=== PATIENT | female | born 2005 | race Caucasian/White ===

== ENCOUNTER 2023-07-11 23:06 | Observation (INO) | payer OTHER ==
[~2023-07-11] VITALS: Ht 170.2 cm; Wt 59.0 kg
[~2023-07-11 23:06] MED LIST: CEPH500 PO; POLY17UD PO; RXCODACET PO
[2023-07-11 23:35] LABS: BASOPHILS ABSOLUTE AUTO 0.03 K/mm3 (0.00-0.23); BASOPHILS PERCENT AUTO 0 % (0-2); EOSINOPHILS ABSOLUTE AUTO 0.08 K/mm3 (0.00-0.68); EOSINOPHILS PERCENT AUTO 1 % (0-6); Hematocrit 36.9 % (33.0-51.0); Hemoglobin 12.6 g/dL (11.5-16.0); IMMATURE GRAN ABSOLUTE AUTO 0.03 K/mm3 (0.00-0.10); IMMATURE GRAN PERCENT AUTO 0 % (0-1); LYMPHOCYTES ABSOLUTE AUTO 1.58 K/mm3 (0.84-5.20); LYMPHOCYTES PERCENT AUTO 17 % (21-46); MONOCYTES ABSOLUTE AUTO 0.78 K/mm3 (0.16-1.47); MONOCYTES PERCENT AUTO 8 % (4-13); Mean Corpuscular HGB 30.3 pg (26.0-34.0); Mean Corpuscular HGB Conc 34.1 g/dL (31.5-36.5); Mean Corpuscular Volume 89 fL (80-100); Mean Platelet Volume 9.7 fL (9.1-12.4); NEUTROPHILS ABSOLUTE AUTO 7.04 K/mm3 (1.96-9.15); NEUTROPHILS PERCENT AUTO 74 % (41-73); Platelet Count 255 K/mm3 (150-400); RDW Coefficient Variation 12.4 % (11.7-14.2); RDW Standard Deviation 40.5 fL (35.1-46.3); Red Blood Cell Count 4.16 M/mm3 (3.80-5.20); White Blood Cell Count 9.54 K/mm3 (4.00-11.30)
[2023-07-11 23:54] LABS: Albumin, Blood 4.2 g/dL (3.4-5.0); Albumin/Globulin Ratio 1.1 (0.8-1.8); Bilirubin, Total 0.7 mg/dL (0.1-1.0); Bun/Creatinine Ratio 13.8 (12.0-20.0); Calcium, Blood 9.2 mg/dL (8.5-10.1); Creatinine, Blood 0.65 mg/dL (0.40-1.00); Globulin, Blood 3.8 g/dL (2.2-4.0); Potassium, Blood 3.7 mmol/L (3.5-5.5)
[2023-07-11 23:59] LABS: Source, Urine Clean Catch
[2023-07-12] VITALS (22 sets, daily range): BP systolic 94–131; BP diastolic 52–95
[2023-07-12 00:04] LABS: Bilirubin, Urine Neg (Neg); Blood, Urine 2+ (Neg); Glucose Qualitative, Urine Neg (Neg); Ketones, Urine 4+ (Neg); Leukocyte Esterase, Urine Neg (Neg); Nitrite, Urine Neg (Neg); Protein, Urine Neg (Neg); Urobilinogen, Urine NORM (Normal); pH, Urine 6.5 (5.0-8.0)
[2023-07-12 00:16] LABS: Appearance, Urine Clear (Clear); Color, Urine Yellow (P-Yellow)
[2023-07-12 00:18] LABS: Bacteria Mod /hpf; Red Blood Cells, Urine 0-2 /hpf (0-2); Squamous Epithelial Cells Few /hpf (Few); White Blood Cells, Urine 0-2 /hpf (0-5)
[2023-07-12] MEDS ORDERED: Ketorolac Tromethamine 30mg Vial IV ONE (00:40)
[2023-07-12] MEDS ORDERED: Ondansetron HCl 2 MG / ML 2ML Vial IV ONE (00:40)
[2023-07-12] MEDS ORDERED: NS 1,000 ML IV SCH (00:40)
[2023-07-12] MEDS ORDERED: MetroNIDAZOLE 500MG/NS 100 ml 100 ML IV ONE ×2 (02:10→09:15)
[2023-07-12] MEDS ORDERED: CefTRIAXone Sodium 1,000 MG in NS 50 ML IV ONE (02:10)
[2023-07-12] MEDS ORDERED: Lactated Ringer's 1,000 ML IV SCH ×3 (02:20→14:35)
[2023-07-12] MEDS ORDERED: Ondansetron HCl 2 MG / ML 2ML Vial IV PRN ×3 (02:20→14:35)
[2023-07-12] MEDS ORDERED: Ketorolac Tromethamine 15mg Vial IV PRN (04:25)
--- NOTE | 2023-07-12 05:25 | NUR ---
END OF SHIFT NOTE: PT A/OX4 ON RA. SHE HAS BEEN NPO SINCE ARRIVAL TO PCU. SHE HAS BEEN MEDICATED PER THE MAR FOR ABD PAIN. PT DENIES ANY OTHER CONCERNS. SHE CALLS APPROPRIATELY, CALL LIGHT IN REACH AND BED IN LOWEST POSITION.
[2023-07-12] MEDS ORDERED: FentaNYL Citrate 50 MCG/ML 2 ML Injection ONE ×2 (08:35→10:36)
[2023-07-12] MEDS ORDERED: FentaNYL Citrate 50 MCG/ML 2 ML Injection IV PRN ×3 (08:35→08:40)
[2023-07-12] MEDS ORDERED: propofoL 20 ML IV ONE (08:35)
[2023-07-12] MEDS ORDERED: Sugammadex Sodium 200 MG/2ML SDV (100 MG/ML) ONE (08:36)
[2023-07-12] MEDS ORDERED: Lidocaine HCl 1% 5 ML SYR INJ ONE (08:40)
[2023-07-12] MEDS ORDERED: HYDROmorphone HCl/Pf 1MG SYR IV PRN (08:40)
[2023-07-12] MEDS ORDERED: Midazolam HCl 1MG / ML 2ML Vial IV PRN (08:40)
[2023-07-12] MEDS ORDERED: Metoclopramide HCl 5MG / ML 2ML Vial IV PRN (08:40)
[2023-07-12] MEDS ORDERED: Bupivacaine 0.5% HCl 5 MG/ML 30MLVIAL ONE (09:00)
--- NOTE | 2023-07-12 09:00 | NUR ---
am note this rn assumed care at 0700. vital signs stable. patient is alert and oriented x4. perrla. patient is able to make needs known and uses call light appropriately. patient denies chest pain/pressure or shortness of breath or pain. see shift assessment for further detials. md haile in room this am and discussed surgery with the patient. patient is in surgery currently for appendix removal. plan of care up to date
--- NOTE | 2023-07-12 09:17 | NUR ---
PT HERE FROM PCU 4 FOR LAP. APPY. PT IS VERY ANXIOUS BUT ASKING GOOD QUESTIONS. FAMILY/SO UNABLE TO BE HERE D/T HOW FAR AWAY THEY LIVE. Patient confirms NPO status and agrees with scheduled surgery. Pre-Op teaching done. Pt verbalizes understanding. History, Chart, Medications and Allergies reviewed before start of procedure.
[2023-07-12] MEDS ORDERED: Midazolam HCl 1MG / ML 2ML Vial ONE (09:20)
[2023-07-12] MEDS ORDERED: Rocuronium Bromide 10 MG/ML 5ML Injection IV ONE (09:22)
[2023-07-12] MEDS ORDERED: Dexamethasone Sod Phos 10 MG/ML 1ML VIAL ONE (09:31)
[2023-07-12] MEDS ORDERED: Ondansetron HCl 2 MG / ML 2ML Vial ONE (09:31)
[2023-07-12] MEDS ORDERED: Ketorolac Tromethamine 30mg Vial ONE (09:52)
[2023-07-12] MEDS ORDERED: HYDROcodone 5-APAP 325 TAB PO PRN (12:10)
--- NOTE | 2023-07-12 12:34 | NUR ---
MD HAILE IN ROOM md haile in room to discuss plan of care with patient and patient family. family requesting that patient stays over night since they live [place]. Plan is for patient to stay over night and be discharged tomorrow.
[2023-07-12] MEDS ORDERED: FLU VACC QS2023-24(6MOS UP)/PF 60 MCG/0.5 ML SYRINGE IM ONE (14:35)
[2023-07-12] MEDS ORDERED: Acetaminophen 325 MG TABLET PO PRN (14:35)
--- NOTE | 2023-07-12 17:19 | NUR ---
shift summary patient neuro remains unchaged, neuro intact. vital signs stable. surgical status. patient reports pain that has been controlled with medication. education provided on pain management, pharmacological and nonpharmacological methods of pain management. no acute changes. see previous notes. plan of care remains up to date. call light within reach
--- NOTE | 2023-07-12 22:15 | NUR ---
TRANSFER OF CARE NOTE CALLED REPORT TO SURGICAL FLOOR GEORGE Zapata. ALL QUESTIONS ANSWERED. ALL PT'S PERSONAL BELONGING GATHERED AND TRANSPORTED WITH PT. CANDELARIA NOLAN UPON TRANSFER TO ROOM 228.
[2023-07-13 04:37] VITALS: BP 107/65
--- NOTE | 2023-07-13 05:30 | NUR ---
SHIFT SUMMARY PCU TRANSFER AT START OF SHIFT. S/P LAP APPY. PT ALERT, ORIENTED AND INDEPENDENT. 1 NORCO FOR PAIN MANAGEMENT. PT REPORTS FLATUS AND AVRIL REG DIET. VOIDING. X3 LAP SITES TO ABD REMAIN CDI. PT LOOKING FORWARD TO DISCHARGING HOME TODAY. CALL LIGHT WITHIN REACH.
[2023-07-13 07:08] VITALS: BP 127/73
[2023-07-13 09:58] LABS: BASOPHILS ABSOLUTE AUTO 0.01 K/mm3 (0.00-0.23); BASOPHILS PERCENT AUTO 0 % (0-2); EOSINOPHILS ABSOLUTE AUTO 0.06 K/mm3 (0.00-0.68); EOSINOPHILS PERCENT AUTO 1 % (0-6); Hematocrit 30.9 % (33.0-51.0); Hemoglobin 10.5 g/dL (11.5-16.0); IMMATURE GRAN ABSOLUTE AUTO 0.02 K/mm3 (0.00-0.10); IMMATURE GRAN PERCENT AUTO 0 % (0-1); LYMPHOCYTES PERCENT AUTO 21 % (21-46); MONOCYTES PERCENT AUTO 8 % (4-13); Mean Corpuscular HGB 30.7 pg (26.0-34.0); Mean Corpuscular Volume 90 fL (80-100); Mean Platelet Volume 10.4 fL (9.1-12.4); NEUTROPHILS ABSOLUTE AUTO 5.57 K/mm3 (1.96-9.15); NEUTROPHILS PERCENT AUTO 70 % (41-73); Platelet Count 215 K/mm3 (150-400); RDW Coefficient Variation 12.5 % (11.7-14.2); RDW Standard Deviation 41.3 fL (35.1-46.3); Red Blood Cell Count 3.42 M/mm3 (3.80-5.20); White Blood Cell Count 7.96 K/mm3 (4.00-11.30)
[2023-07-13 10:17] LABS: Bun/Creatinine Ratio 13.2 (12.0-20.0); Calcium, Blood 8.1 mg/dL (8.5-10.1); Creatinine, Blood 0.68 mg/dL (0.40-1.00); Potassium, Blood 3.3 mmol/L (3.5-5.5)
--- NOTE | 2023-07-13 17:52 | NUR ---
DISCHARGE SUMMARY POD1 LAP APPY, A/OX4, VSS, TOLERATING PO, PAIN WELL MANAGED, INDEPENDENT IN THE ROOM, VOIDING WELL. DISCUSSED DISCHARGE INFORMATION INCLUDING HOME CARE, MEDICATIONS, AND FOLLOW UP APPOINTMENTS. NO QUESTIONS AT THIS TIME, SHE VERBALIZED UNDERSTANDING OF INSTRUCTIONS. ESCORTED OUT VIA WC TO PRIVATE AUTO TO GO HOME.
== END 2023-07-13 15:17 | disposition home or self-care (01) ==
LOC: ER 23:06 → SURS 23:07 → PCU 23:07 → SURS 07-12 21:39
PROVIDERS: Physician Assistant; Surgery; ADMIT Surgery
PROC: 0DTJ0ZZ Resection of Appendix, Open Approach (ICD-10-PCS; principal; 2023-07-12 09:30)
DX: K35.80 Unspecified acute appendicitis (principal); Z72.0 Tobacco use
CPT/HCPCS: 36415; 74177; 80048; 80053; 81001; 81025; 85025; 87086; 88304; 96361; 96365; 96365-59; 96367; 96375; 96376; 99285-25; A9270; G0378; J0696; J1100; J1885; J2250; J2405; J2704; J3010; J7030; J7120; Q9967

== ENCOUNTER → 2024-06-27 | Outpatient (CLI) | payer OTHER | LOC: LAB 10:34 → LAB SHORT 10:34 | DX: R30.0 Dysuria (principal) | CPT/HCPCS: 87077; 87086; 87186 ==